=== PATIENT | male | born 1985 | race Two or more races ===

== ENCOUNTER 2018-03-31 19:48 | Emergency (ER) | payer OTHER ==
[~2018-03-31] VITALS: Ht 165.1 cm; Wt 65.8 kg
[2018-03-31] MEDS ORDERED: AMOXICILLIN500 M1 PO (21:21)
[2018-03-31] MEDS ORDERED: KETO10TA2 PO (21:21)
== END 2018-03-31 22:57 | disposition home or self-care (01) ==
LOC: ER 19:48
DX: K02.9 Dental caries, unspecified (principal)